=== PATIENT | female | born 1940 | race Caucasian/White ===

== ENCOUNTER → 2018-04-20 | Outpatient (CLI) | payer OTHER ==
--- NOTE | 2018-04-20 11:27 | RAD ---
EXAM DESCRIPTION: Ankle,Left 3 Views CLINICAL HISTORY: PAIN IN LEFT LEG COMPARISON: None. TECHNIQUE: 3 views left FINDINGS: Osteopenia is observed. No fracturing is detected. The ankle mortise is intact. IMPRESSION: Osteopenia is observed. No fracturing is detected. Electronically signed by: Nacho Cuevas MD 04/20/2018 11:26 AM [facility]
--- NOTE | 2018-04-20 11:31 | RAD ---
EXAM DESCRIPTION: Foot,Left 3 Views CLINICAL HISTORY: LEFT LEG PAIN COMPARISON: None. TECHNIQUE: 3 views left FINDINGS: Fracturing of the distal aspect of the proximal phalanx of the first digit is observed. A fracture extends into the interphalangeal joint. The bone fragment is essentially nondisplaced. Diffuse osteopenia is observed throughout the foot. No further fracturing is detected. The exam does reveal some deformity of the fourth metatarsal from prior fracturing. IMPRESSION: 1. A fracture of the distal aspect of the proximal phalanx of the first digit is observed. 2. Diffuse osteopenia Electronically signed by: Nacho Cuevas MD 04/20/2018 11:30 AM [facility]
--- NOTE | 2018-04-20 11:33 | RAD ---
EXAM DESCRIPTION: Hip,Left 2 Views CLINICAL HISTORY: LEFT LEG PAIN COMPARISON: None. TECHNIQUE: 3 views left FINDINGS: A left hip arthroplasty is observed. No evidence of loosening or infection is observed. No evidence of dislocation is seen. No pelvic fracture is detected. Calcific atherosclerotic changes observed in the superficial femoral and iliac vessels. 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 IMPRESSION: Left hip arthroplasty without evidence of loosening or infection. Electronically signed by: Nacho Cuevas MD 04/20/2018 11:31 AM [facility]
--- NOTE | 2018-04-20 11:33 | RAD ---
EXAM DESCRIPTION: Knee,Left Complete CLINICAL HISTORY: LEG PAIN COMPARISON: None. TECHNIQUE: 4 views left FINDINGS: Diffuse mild osteopenia is observed. No fracture is detected. No joint effusion is seen. Some calcific atherosclerotic changes observed in the popliteal artery. IMPRESSION: Osteopenia is observed without evidence of fracturing. Electronically signed by: Nacho Cuevas MD 04/20/2018 11:32 AM [facility]
== END ==
LOC: RAD 09:47
PROVIDERS: ATTEND Orthopaedic Surgery
DX: S92.425A Nondisplaced fracture of distal phalanx of left great toe, initial encounter for closed fracture (principal); M85.862 Other specified disorders of bone density and structure, left lower leg; M79.605 Pain in left leg; Z47.1 Aftercare following joint replacement surgery; Z96.642 Presence of left artificial hip joint